=== PATIENT | female | born 2000 | race African-American/Black ===

== ENCOUNTER 2022-02-21 18:03 | Emergency (ER) | payer OTHER ==
[~2022-02-21] VITALS: Ht 160 cm; Wt 55.0 kg
[2022-02-21] MEDS ORDERED: LEVETIRACETAM 1000MG PREMIX 100 ML IV ONE (19:45)
[2022-02-21 20:07] LABS: BASOPHILS % 0.6 % (0.0-2.0); HEMATOCRIT. 38.1 % (36.0-48.0); HEMOGLOBIN. 12.3 g/dL (12.0-16.0); LYMPHOCYTES % 30.4 % (20.0-50.0); MEAN CORPUSCULAR HEMOGLOBIN 27.4 pg (28.0-32.0); MEAN CORPUSCULAR VOLUME 84.9 fL (81.0-99.0); MEAN PLATELET VOLUME 8.9 fl (7.4-10.4); MONOCYTES % 6.5 % (2.0-8.0); NEUTROPHILS % 60.5 % (40.0-76.0); PLATELET 181 x1000/uL (130-400); RED BLOOD CELL COUNT 4.49 mill/uL (4.2-5.4); RED CELL DISTRIBUTION WIDTH 14.7 % (11.6-14.6)
[2022-02-21 20:13] LABS: CHLORIDE 107 mEq/L (98-107)
[2022-02-21 20:23] LABS: ETHANOL BLOOD < 10 mg/dL
[2022-02-21 21:22] VITALS: BP 103/60
== END 2022-02-21 21:22 | disposition home or self-care (01) ==
LOC: ER 18:03
DX: G40.909 Epilepsy, unspecified, not intractable, without status epilepticus (principal)
CPT/HCPCS: 36415; 71045; 80053; 80320; 84484; 85025; 93005; 96365; 99285; J1953; G0480